=== PATIENT | female | born 1990 | race Caucasian/White ===

== ENCOUNTER 2020-01-30 23:09 | Emergency (ER) | payer MEDICAID ==
[~2020-01-30] VITALS: Ht 167.6 cm; Wt 127.3 kg
[2020-01-30] MEDS ORDERED: BACITRACIN 0.9 GM PACKET OINTMENT TP ONE (23:45)
[2020-01-30] MEDS ORDERED: LIDOCAINE 1%/EPI 1:200,000/PF 10 ML VIAL INJ ONE (23:45)
[2020-01-30] MEDS ORDERED: PERTUSS(ACELL),DIPH,TET VAC/PF 0.5 ML VIAL IM ONE (23:45)
[2020-01-31 00:23] VITALS: BP 145/88
== END 2020-01-31 01:36 | disposition home or self-care (01) ==
LOC: EMS 23:11
DX: S01.112A Laceration without foreign body of left eyelid and periocular area, initial encounter (principal); M54.2 Cervicalgia; F17.200 Nicotine dependence, unspecified, uncomplicated; F12.90 Cannabis use, unspecified, uncomplicated; Z88.1 Allergy status to other antibiotic agents; W01.0XXA Fall on same level from slipping, tripping and stumbling without subsequent striking against object, initial encounter; Y93.89 Activity, other specified; Y92.89 Other specified places as the place of occurrence of the external cause; Y99.8 Other external cause status
CPT/HCPCS: 12013; 70450; 72125; 81025; 90471; 90715; 99285; J3490